=== PATIENT | male | born 1995 | race Caucasian/White ===

== ENCOUNTER 2018-05-12 12:13 | Emergency (ER) | payer BC, OTHER ==
[~2018-05-12] VITALS: Ht 185.4 cm; Wt 75.3 kg
[~2018-05-12 12:13] MED LIST: AMOX400S2 PO; AMOX875T PO; HYDR15SO3 PO; HYDR473S47 PO
[2018-05-12 12:17] VITALS: BP 122/69
== END 2018-05-12 14:00 | disposition home or self-care (01) ==
LOC: ED 13:54
DX: S46.911A Strain of unspecified muscle, fascia and tendon at shoulder and upper arm level, right arm, initial encounter (principal); S29.011A Strain of muscle and tendon of front wall of thorax, initial encounter; S21.90XA Unspecified open wound of unspecified part of thorax, initial encounter; K21.9 Gastro-esophageal reflux disease without esophagitis; V59.59XA Passenger in pick-up truck or van injured in collision with other motor vehicles in traffic accident, initial encounter; Y93.89 Activity, other specified; Y92.89 Other specified places as the place of occurrence of the external cause; Y99.8 Other external cause status
CPT/HCPCS: 71046; 99284